=== PATIENT | male | born 1990 | race Caucasian/White ===

== ENCOUNTER 2022-10-11 15:46 | Emergency (ER) | payer OTHER, SELFPAY ==
[2022-10-11 15:56] VITALS: BP 165/103; PULSE 82; RESP 18; TEMP 36.9; O2SAT 98; BMI 40.6
--- NOTE | 2022-10-11 16:00 | ECG_ITS ---
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 Measurements Intervals [place] Rate: 80 P: 32 [place]: 135 QRS: 51 QRSD: 93 T: 25 QT: 354 QTc: 410 Interpretive Statements SINUS RHYTHM No previous ECG available for comparison Electronically Signed On 10-12-2022 3:50:18 CDT by Paradise Walls M.D. [id number]
[2022-10-11] MEDS: aluminum-mag hydrox-simethicon 30 ML, sucralfate oral liq 1 GM PO (16:50)
--- NOTE | 2022-10-11 16:50 | ECG_ITS ---
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 Measurements Intervals [place] Rate: 80 P: 30 [place]: 130 QRS: 30 QRSD: 106 T: 5 QT: 364 QTc: 421 Interpretive Statements SINUS RHYTHM NONSPECIFIC T-WAVE ABNORMALITY No previous ECG available for comparison Electronically Signed On 10-12-2022 3:50:12 CDT by Paradise Walls M.D. [id number]
--- NOTE | 2022-10-11 17:00 | PC.PHAR ---
pt states he takes care of his own medications-pt states he has been taking his wifes propranolol 3 tabs (30mg) bid-
--- NOTE | 2022-10-11 17:04 | ED_ITS ---
HPI - Chest Pain General: Chief Complaint: Chest Pain Stated Complaint: Chest Pain Time Seen by Provider: 10/11/22 16:43 Source: patient Mode of arrival: ambulatory History of Present Illness: 32-year-old male presents emergency room with complaints of chest pain that began earlier this afternoon just 2 to 3 hours ago. He gets sharp flashes of pain that lasts for a second or 2 at most on the right side of his chest no accompanying radiation of the pain shortness of breath or diaphoresis or nausea. No palpitations. No history of arrhythmias no history of coronary artery disease. Patient is not diabetic and does not smoke MD complaint: chest pain Onset (ago): minute(s) Timing of current episode: episodic Prior episodes: No Pain location: right chest Pain radiation: none Severity: mild Quality: sharp Relieving factors: nothing Exacerbating factors: nothing Associated symptoms: Deny abdominal pain, diaphoresis, dyspnea, fever(s), leg edema, nausea, palpitations, sense of impending doom, syncope or vomiting Review of Systems Const: Denies: fever(s), chills, fatigue, malaise or diaphoresis ENMT: Denies: throat pain, ear or mastoid pain, nasal discharge or nasal congestion Card: Reports: chest pain; Denies: palpitations, irregular heart rhythm, edema or syncope Resp: Denies: dyspnea, productive cough or non-productive cough GI: Denies: abdominal pain, nausea or vomiting : Denies: flank pain, dysuria, urinary frequency or urinary urgency Musc: Denies: neck pain or back pain Skin/Breast: Denies: rash or pruritus Physical Exam Const: COMMON NORMALS: no acute distress GENERAL APPEARANCE: cooperative and comfortable ORIENTATION/CONSCIOUSNESS: Yes awake, Yes oriented to person, Yes oriented to place and Yes oriented to time HENMT: COMMON NORMALS: normocephalic, atraumatic and hearing grossly normal bilaterally HEAD & SCALP: normocephalic and atraumatic Resp: COMMON NORMALS: normal respiratory effort, No retractions, No use of accessory muscles and clear to auscultation bilaterally AUSCULTATION: clear to auscultation bilaterally Cardio: COMMON NORMALS: regular rate, regular rhythm and No murmurs present (Cardio) RATE: regular rate RHYTHM: regular rhythm GI: COMMON NORMALS: Soft to palpation and No hepatosplenomegaly present AUSCULTATION: Yes normoactive bowel sounds PALPATION: Yes Soft to palpation, No Tenderness to palpation present (GI), No Guarding due to palpation present (GI) and Yes No hepatosplenomegaly present Extremity: COMMON NORMALS: normal to inspection, capillary refill normal, no clubbing, cyanosis or edema, no calf tenderness and no pedal edema Neuro: SENSORIUM/ORIENTATION: Yes oriented to person, Yes oriented to place and Yes oriented to time Skin: COMMON NORMALS: no rashes or lesions noted GENERAL SKIN EXAM: no rashes or lesions noted Course Vital Signs: Vital signs: Vital Signs Temperature 98.4 F 10/11/22 15:56 Pulse Rate 79 10/11/22 18:39 Respiratory Rate 18 10/11/22 15:56 Blood Pressure 155/90 10/11/22 18:39 Pulse Oximetry 98 10/11/22 18:39 Oxygen Delivery Me thod Room Air 10/11/22 18:16 MDM - Chest Pain Medical Decision Making Labs imaging and EKG reviewed no significant findings patient is having no symptoms at this time. He has a mild leukocytosis but his lungs are clear his vital signs are all stable. At this time will discharge patient I will have him follow-up with his primary care return if he has further symptoms. His chest pain is more musculoskeletal in nature it is somewhat reproducible lasts only for seconds at a time and is intermittent. Medical Records I reviewed the patient's medical records. Lab Data I reviewed the patient's lab results. 10/11/22 17:10 10/11/22 17:10 Radiology Impressions Chest X-Ray 10/11/22 17:59 IMPRESSION: Negative chest exam. Laboratory Results WBC 12.5 10^3/uL (4.0-10.0) H 10/11/22 17:10 RBC 5.48 10^6/uL (4.1-5.3) H 10/11/22 17:10 Hgb 13.7 g/dL (11.7-16.6) 10/11/22 17:10 Hct 43.9 % (42.0-52.0) 10/11/22 17:10 MCV 80.1 fl (80-94) 10/11/22 17:10 MCH 25.0 pg (28.0-34.0) L 10/11/22 17:10 MCHC 31.2 g/dL (30.0-36.0) 10/11/22 17:10 RDW 14.5 % (12.1-15.1) 10/11/22 17:10 Plt Count 269 10^3/cmm (130-400) 10/11/22 17:10 MPV 10.7 fL (7.4-10.4) H 10/11/22 17:10 Neut % (Auto) 75.2 % 10/11/22 17:10 Lymph % (Auto) 15.0 % 10/11/22 17:10 [place] % (Auto) 8.2 % 10/11/22 17:10 Eos % (Auto) 0.4 % 10/11/22 17:10 Baso % (Auto) 0.8 % 10/11/22 17:10 Neut # (Auto) 9.38 10^3/uL (1.8-7.7) H 10/11/22 17:10 Lymph # (Auto) 1.9 10^3/uL (0.8-4.8) 10/11/22 17:10 [place] # (Auto) 1.0 10^3/uL (0.2-0.9) H 10/11/22 17:10 Eos # (Auto) 0.1 10^3/uL (0.0-0.8) 10/11/22 17:10 Baso # (Auto) 0.1 10^3/uL (0.0-0.1) 10/11/22 17:10 Nucleated RBC % (auto) 0 % 10/11/22 17:10 Nucleated RBCs # 0.0 /100WBC 10/11/22 17:10 Sodium 134 mmol/L (136-145) L 10/11/22 17:10 Potassium 4.4 mmol/L (3.5-5.1) 10/11/22 17:10 Chloride 101 mmol/L (98-107) 10/11/22 17:10 Carbon Dioxide 19 mmol/L (22-29) L 10/11/22 17:10 Anion Gap 18.4 (5-19) 10/11/22 17:10 BUN 13 mg/dL (6-20) 10/11/22 17:10 Creatinine 0.7 mg/dL (0.7-1.2) 10/11/22 17:10 GFR Calculation 130.7 mL/min (90-130) H 10/11/22 17:10 Glucose 101 mg/dL (65-115) 10/11/22 17:10 Calculated Osmolality 278 mOsm/kg (285-295) L 10/11/22 17:10 Calcium 9.2 mg/dL (8.5-10.5) 10/11/22 17:10 Total Bilirubin 0.9 mg/dL (0.15-1.2) 10/11/22 17:10 AST 19 U/L (0-40) 10/11/22 17:10 ALT 15 U/L (0-41) 10/11/22 17:10 Alkaline Phosphatase 67 U/L (40-130) 10/11/22 17:10 Troponin T Baseline 6 ng/L (0-15) 10/11/22 17:10 Total Protein 7.7 g/dL (6.6-8.7) 10/11/22 17:10 Albumin 4.2 g/dL (3.5-5.2) 10/11/22 17:10 Globulin 3.5 g/dL (1.3-4.6) 10/11/22 17:10 Discharge Plan Discharge Patient Disposition: Home Clinical Impression: Musculoskeletal chest pain Condition: Stable Prescriptions: No Action multivitamin Tablet 1 tab PO QAM Aspir-81 81 mg Tablet,Delayed Release (Dr/Ec) 81 mg PO QAM Tylenol Ex Str Rapid Release 500 mg Tablet 1,000 mg PO Q6H PRN (Reason: Pain) propranolol 10 mg Tablet 30 mg PO BID ibuprofen 200 mg Tablet 400 mg PO Q6H PRN (Reason: Pain) Discharge Orders: Discharge ED (Routine); Ordered 10/11/22 Ordered By: Talib Last Discharge Diet: Usual diet Discharge Activity: Resume usual activity Patient Instructions: Opioid Safety, Pain Management Coding Level of Care Code ED Chemical Packager for Alejandro Tapia
[2022-10-11 17:11] VITALS: BP 171/91; PULSE 85; O2SAT 99
[2022-10-11 17:24] LABS: Basophils # 0.1 10^3/uL (0.0-0.1); Basophils % 0.8 %; Eosinophils # 0.1 10^3/uL (0.0-0.8); Eosinophils % 0.4 %; Hematocrit 43.9 % (42.0-52.0); Hemoglobin 13.7 g/dL (11.7-16.6); Lymphocytes # 1.9 10^3/uL (0.8-4.8); Mean Corpuscular HGB Conc 31.2 g/dL (30.0-36.0); Mean Corpuscular Volume 80.1 fl (80-94); Mean Platelet Volume 10.7 fL (7.4-10.4); Monocytes % 8.2 %; Neutrophils # 9.38 10^3/uL (1.8-7.7); Neutrophils % 75.2 %; Nucleated Red Blood Cells % 0 %; Platelet Count 269 10^3/cmm (130-400); Red Blood Count 5.48 10^6/uL (4.1-5.3); Red Cell Distribution Width 14.5 % (12.1-15.1); White Blood Count 12.5 10^3/uL (4.0-10.0)
--- NOTE | 2022-10-11 17:24 | PC.NURSE ---
nurse went in to start IV pt requested we wait until it was needed as he would rather not have one. blood has already been drawn by lab. pt and vitals are stable.
[2022-10-11 17:41] LABS: Troponin(5th) Baseline 6 ng/L (0-15)
[2022-10-11 17:43] LABS: Alanine Aminotransferase 15 U/L (0-41); Albumin Level 4.2 g/dL (3.5-5.2); Alkaline Phosphatase 67 U/L (40-130); Blood Urea Nitrogen 13 mg/dL (6-20); Calcium 9.2 mg/dL (8.5-10.5); Carbon Dioxide 19 mmol/L (22-29); Chloride 101 mmol/L (98-107); Globulin 3.5 g/dL (1.3-4.6); Glomerular Filtration Rate 130.7 mL/min (90-130); Glucose 101 mg/dL (65-115); Osmolality Calculated 278 mOsm/kg (285-295); Sodium 134 mmol/L (136-145); Total Bilirubin 0.9 mg/dL (0.15-1.2); Total Protein 7.7 g/dL (6.6-8.7)
[2022-10-11 17:44] LABS: Anion Gap 18.4 (5-19); Aspartate Amino Transferase 19 U/L (0-40); Potassium 4.4 mmol/L (3.5-5.1)
--- NOTE | 2022-10-11 17:59 | XRR_ITS ---
PROCEDURE INFORMATION: Exam: XR Chest Exam date and time: 10/11/2022 6:05 PM Age: 32 years old Clinical indication: Pain; Chest pressure; Additional info: Dyspnea/cough TECHNIQUE: Imaging protocol: Radiologic exam of the chest. Views: 1 view. COMPARISON: No relevant prior studies available. FINDINGS: Lungs: Unremarkable. No consolidation. Pleural spaces: Unremarkable. No pleural effusion. No pneumothorax. Heart/Mediastinum: Unremarkable. No cardiomegaly. Bones/joints: Unremarkable for age. XR/XR chest 1V portable [id number] IMPRESSION: Negative chest exam.
[2022-10-11 18:16] VITALS: BP 155/90; PULSE 77; O2SAT 96
[2022-10-11 18:39] VITALS: BP 155/90; PULSE 79; O2SAT 98
--- NOTE | 2022-10-15 12:45 | DCPLANNER ---
group fitness manager was triggered to call patient due to no primary care physician - patient is established with Dr. Telles at [facility].
== END 2022-10-11 18:41 | disposition home or self-care (01) ==
PROVIDERS: Emergency Provider Family Medicine; PCP Family Medicine Adult Medicine
DX: R07.89 Other chest pain (principal); Z79.82 Long term (current) use of aspirin
CPT/HCPCS: 36415; 71045; 80053; 84484; 85025; 93005; 99285

== ENCOUNTER → 2024-03-23 11:03 | Outpatient (BNVA) | payer OTHER, SELFPAY | DX: I10 Essential (primary) hypertension (principal) | CPT/HCPCS: 80053; 85025 ==